=== PATIENT | female | born 1995 | race Caucasian/White ===

== ENCOUNTER 2017-02-11 12:33 | Emergency (ER) | payer BC, MEDICAID ==
[~2017-02-11] VITALS: Ht 157.5 cm; Wt 78.0 kg
[2017-02-11 12:34] VITALS: BP 122/80
== END 2017-02-11 14:49 | disposition home or self-care (01) ==
LOC: ED 14:43
DX: M54.5 Low back pain (principal); G89.11 Acute pain due to trauma
CPT/HCPCS: 71010; 72110; 72190; 99284

== ENCOUNTER 2017-05-18 00:45 | Emergency (ER) | payer BC ==
[~2017-05-18] VITALS: Ht 157.5 cm; Wt 80.0 kg
[2017-05-18] MEDS ORDERED: MORPHINE SULFATE 4 MG/ML, 1ML IVPush PRN (01:00)
[2017-05-18] MEDS ORDERED: SODIUM CHLORIDE FLUSH 10ML SYR IVF ONE (01:00)
[2017-05-18] MEDS ORDERED: SODIUM CHLORIDE 0.9% 1,000ML IVBOLUS ONE (01:00)
[2017-05-18] MEDS ORDERED: ONDANSETRON 2MG/ML, 2ML IVPush ONE (01:00)
[2017-05-18] MEDS ORDERED: ONDANSETRON 2MG/ML, 2ML ONE (01:09)
[2017-05-18] MEDS ORDERED: MORPHINE SULFATE 4 MG/ML, 1ML ONE (01:09)
[2017-05-18 01:19] LABS: HEMATOCRIT 45.2 % (34.6-47.8); HEMOGLOBIN 15.1 g/dL (11.7-16.4); WHITE BLOOD COUNT 7.2 x10^3/uL (4.5-13.2)
[2017-05-18 01:29] LABS: ASPARTATE AMINO TRANSFERASE 67 U/L (15-37); BLOOD UREA NITROGEN 9 mg/dL (7-18)
[2017-05-18 01:36] LABS: DIFF TOTAL CELLS COUNTED 100 CELL DIFF
[2017-05-18 01:42] LABS: VERIFY COUNTS? YES
[2017-05-18 02:43] VITALS: BP 139/70
== END 2017-05-18 03:28 | disposition home or self-care (01) ==
LOC: ED 01:08
DX: R10.2 Pelvic and perineal pain (principal); Z90.49 Acquired absence of other specified parts of digestive tract
CPT/HCPCS: 36415; 74176; 76830; 80053; 81003; 83690; 84703; 85025; 96361; 96374; 96375; 99285; J2405; J7030

== ENCOUNTER 2019-07-23 16:27 | Emergency (ER) | payer BC, MEDICAID ==
[~2019-07-23] VITALS: Ht 157.5 cm; Wt 77.3 kg
--- NOTE | 2019-07-23 16:59 | NUR ---
PT TO ROOM 10 PER [facility]. PT CALLED SHE REPORTS HAVING 2 SYNCOPAL EPISODES WITH LOC AT HOME. PT WAS A/OX3 UPON [facility] ARRIVAL, AND REMAINED SO THROUGHOUT TRANSFER. PT REPORTS THAT AFTER HER LAST SURGERY, SHE WENT SEPTIC, AND IS AFRAID THAT IS HAPPENING NOW. PT HAS A COLOSTOMY REVERSAL DONE ON 07/20/2019. DRESSING TO ABDOMEN IS CDI. PT STATES "THEY ORDERED ME PERCOCET, BUT I CAN'T TAKE THAT, SO I'M JUST USING TYLENOL AND IBUPROFEN." PT REPORT TEMP OF 103 PRIOR TO FIRST SYNCOPAL EPISODE. PT HAS NUMEROUS MOORE FROM IV STARTS FROM HOSPITAL VISIT. PT REMAINS A/OX3. C/O NAUSEA AND BEING COLD. WILL CONTINUE TO MONITOR.
[2019-07-23] MEDS ORDERED: ONDANSETRON 2MG/ML, 2ML ONE (17:39)
[2019-07-23] MEDS ORDERED: MORPHINE SULFATE 4 MG/ML, 1ML ONE ×2 (17:40→19:15)
[2019-07-23] MEDS: MORPHINE SULFATE 4 MG/ML, 1ML IVPush PRN ×2 (17:44→19:19)
--- NOTE | 2019-07-23 17:55 | NUR ---
PT UP TO BSC TO COLLECT URINE. RECTAL TEMP TAKEN AND MEDICATIONS GIVEN. WILL CONTINUE TO MONITOR
[2019-07-23] MEDS ORDERED: SODIUM CHLORIDE 0.9% 1,000ML IVBOLUS ONE ×2 (18:00→19:00)
[2019-07-23] MEDS ORDERED: ONDANSETRON 2MG/ML, 2ML IVPush ONE (18:00)
[2019-07-23 18:12] LABS: INTERNATIONAL NORMALIZED RATIO 0.86 (0.93-1.1); PROTHROMBIN TIME 9.1 Seconds (9.6-11.5)
[2019-07-23 18:13] LABS: BASOPHILS # (AUTO) 0.03 x10^3/uL (0-0.1); BASOPHILS % (AUTO) 0 % (0-1); EOSINOPHILS # (AUTO) 0.07 x10^3/uL (0-0.4); EOSINOPHILS % (AUTO) 1 % (1-7); LYMPHOCYTES # (AUTO) 1.15 x10^3/uL (1-3.4); LYMPHOCYTES % (AUTO) 12 % (22-44); MD NO; MEAN CORPUSCULAR HEMOGLOBIN 28.8 pg (27.0-34.8); MEAN CORPUSCULAR HGB CONC 33.2 g/dL (32.4-35.8); MEAN CORPUSCULAR VOLUME 86.5 fL (80-100); MEAN PLATELET VOLUME 8.9 fL (7.4-10.4); MONOCYTES % (AUTO) 9 % (2-9); NEUTROPHILS # (AUTO) 7.65 x10^3/uL (1.8-6.8); NEUTROPHILS % (AUTO) 78 % (42-75); PLATELET COUNT 231 x10^3/uL (130-400); RED BLOOD COUNT 4.61 x10^6/uL (3.82-5.3); RED CELL DISTRIBUTION WIDTH 14.7 % (9.6-15.2)
[2019-07-23 18:14] LABS: ALANINE AMINOTRANSFERASE 32 U/L (12-78); ANION GAP 6 mmol/L (5-15); CALCIUM 8.9 mg/dL (8.5-10.1); CHLORIDE 108 mmol/L (98-107); CREATININE 0.75 mg/dL (0.55-1.02)
[2019-07-23 18:16] LABS: ALKALINE PHOSPHATASE 83 U/L (45-117); BILIRUBIN,TOTAL 0.3 mg/dL (0.2-1.0); TOTAL PROTEIN 7.5 g/dL (6.4-8.2)
[2019-07-23 18:24] LABS: MICROSCOPIC AUTO
[2019-07-23 18:25] LABS: CULTURE INDICATED? YES
[2019-07-23] MEDS ORDERED: SODIUM CHLORIDE FLUSH 10ML SYR IVF ONE (18:30)
[2019-07-23] MEDS ORDERED: ACETAMINOPHEN 500 MG TABLET PO ONE (18:30)
--- NOTE | 2019-07-23 18:46 | NUR ---
PT TO CT, RETURNED TO ROOM AND LAB AT BEDSIDE TO DRAW.
[2019-07-23 18:47] LABS: RAPID INFLUENZA A Negative (Negative); RAPID INFLUENZA B Negative (Negative)
[2019-07-23] MEDS ORDERED: ACETAMINOPHEN 500 MG TABLET ONE (19:15)
--- NOTE | 2019-07-23 19:30 | NUR ---
PT RESTING IN ROOM. REQUESTING FOR LIQUIDS AGAIN. NOTE SENT TO .
--- NOTE | 2019-07-23 20:44 | NUR ---
PT UP TO BR WITH RN ASSIST. PT STATES "I'M NOT COLD ANYMORE, FINALLY. NOW I'M SWEATING" PT NEEDING TO HAVE A BM. MOM REMAINS AT BEDSIDE. ORDERS PLACED FOR RECTAL CONTRAST FOR ABD CT, FLUID AND MOTRIN.
[2019-07-23] MEDS ORDERED: IBUPROFEN 600 MG TABLET PO ONE (21:00)
[2019-07-23] MEDS ORDERED: IBUPROFEN 600 MG TABLET ONE (21:42)
--- NOTE | 2019-07-23 21:52 | NUR ---
PT STATES "I FEEL SO MUCH BETTER, I HOPE I GET TO GO HOME" MOTRIN PO GIVEN. PT UP TO BSC TO EXPELL RECTAL CONTRAST. MOM REMAINS AT BEDSIDE.
--- NOTE | 2019-07-23 21:59 | NUR ---
RECEIVED REPORT FROM JOSEF BHAT. ASSUMING CARE AT THIS TIME.
--- NOTE | 2019-07-23 21:59 | NUR ---
REPORT TO AYUSH LEDBETTER MD NOTIFIED OF PATIENT WANTING TO EAT AND GO HOME.
[2019-07-23] MEDS ORDERED: AMPICILLIN/SULBACTAM 3 GM in SODIUM CHLORIDE 0.9% 100 ML IV ONE (22:30)
--- NOTE | 2019-07-23 22:51 | NUR ---
IV ABX RUNNING PER JUL. PT RESTING ON [employer]. MASSIMO.
[2019-07-23 23:07] VITALS: BP 132/81
== END 2019-07-24 00:09 ==
LOC: ED 23:58
DX: R55 Syncope and collapse (principal); R11.2 Nausea with vomiting, unspecified; R50.82 Postprocedural fever
CPT/HCPCS: 36415; 71045; 74176; 80053; 81001; 83605; 83690; 85025; 85610; 85730; 87040; 87086; 87400; 93005; 96361; 96374; 96375; 96376; 99285; J0295; J2270; J2405; J7030